=== PATIENT | female | born 1970 | race Caucasian/White ===

== ENCOUNTER 2017-08-29 14:48 | Emergency (ER) | payer BC ==
[~2017-08-29] VITALS: Ht 160 cm; Wt 64.1 kg
[2017-08-29 15:18] VITALS: Ht 160 cm; Wt 64.1 kg
[2017-08-29 16:16] VITALS: BP 116/67
== END 2017-08-29 17:21 | disposition home or self-care (01) ==
LOC: ED 14:48
DX: R21 Rash and other nonspecific skin eruption (principal)
CPT/HCPCS: J1200; J7512